=== PATIENT | female | born 1955 | race Caucasian/White ===

== ENCOUNTER 2019-07-11 09:01 | Day surgery (SDC) | payer MEDICARE ==
[2019-07-10 12:35] VITALS: BMI 21.9
[~2019-07-11 09:01] MED LIST: Cyclopentolate 1% Opth Drop 2 ML BOT R EYE SCH; EPINEPHrine 0.3 MG in Ophthalmic Irrigation Solution 500 ML IRR SCH; Fentanyl 100 MCG/2 ML VIAL ONE; Midazolam HCl 2 mg/2 ml Vial ONE; Phenylephrine 2.5% Ophth Soln 5 ML BOT R EYE SCH
[2019-07-11] MEDS ORDERED: Cyclopentolate 1% Opth Drop 2 ML BOT ONE (09:27)
[2019-07-11] MEDS ORDERED: Phenylephrine 2.5% Ophth Soln 5 ML BOT ONE (09:27)
--- NOTE | 2019-07-11 13:27 | OP ---
DATE OF PROCEDURE: 07/11/2019 PRINCIPAL PREOPERATIVE DIAGNOSIS: Vitreomacular traction, right eye. POSTOPERATIVE DIAGNOSIS: Vitreomacular traction, right eye. NAME OF PROCEDURES PERFORMED: 1. 25-gauge pars plana vitrectomy, right eye. 2. Membrane peel, right eye. ESTIMATED BLOOD LOSS: None. SPECIMENS REMOVED: None. COMPLICATIONS: None. ANESTHESIA: MAC with retrobulbar block. SUMMARY OF THE OPERATION: The patient was identified in the preoperative holding area, where the correct eye being the right eye was marked for surgery. The patient was taken to the operating room, where MAC anesthesia was induced. A retrobulbar block was administered to the right eye. The block consisted of 1:1 ratio of 4% lidocaine and 0.75% Marcaine. A total of 5 mL was administered. The right eye was then prepped and draped in the usual sterile ophthalmic fashion for surgery. A wire lid speculum was placed. A standard 25-gauge pars plana vitrectomy platform was fashioned with trocars placed approximately 4 mm from the limbus. The infusion was noted to be within the vitreous cavity prior to being turned on to an infusion pressure of 30 mmHg. The light pipe Micro vitrector introduced in the eye under visualization of the BIOM viewing system. A careful core vitrectomy was performed followed by the injection of Kenalog. A gentle posterior vitreous detachment was subsequently created followed by completion of peripheral shave vitrectomy. A close examination of the periphery was performed with a 360 degree scleral depression, which revealed no defects. The cannulas were sequentially removed with suturing of the supratemporal sclerotomy required. Following suturing, all sclerotomies were noted to be watertight. Subconjunctival Ancef and Kenalog were injected. The wire lid speculum was removed followed by application of TobraDex ophthalmic ointment and a light patch and shield. The patient tolerated the procedure well and was taken to the outpatient recovery area in good condition. Job ID: [id number]
[2019-07-11] MEDS ORDERED: Lidocaine 4% PF 5 ML AMP ONE (15:00)
[2019-07-11] MEDS ORDERED: Maxitrol 0.1% Opth Oint 3.5 GM TUBE ONE (15:00)
[2019-07-11] MEDS ORDERED: PROPOFOL 200 MG/20 ML VIAL ONE (15:00)
[2019-07-11] MEDS ORDERED: Triamcinolone 40 MG/ML VIAL ONE (15:00)
[2019-07-11] MEDS ORDERED: Lidocaine 1% PF 5 ML VIAL ONE (15:00)
[2019-07-11] MEDS ORDERED: Bupivacaine PF 0.75% SDV 10 ML ONE (15:00)
== END 2019-07-11 13:20 | disposition home or self-care (01) ==
LOC: SDC 09:01
PROVIDERS: ATTEND Ophthalmology Retina Specialist
PROC: 08T43ZZ Resection of Right Vitreous, Percutaneous Approach (ICD-10-PCS; principal; 2019-07-11)
PROC: 08NE3ZZ Release Right Retina, Percutaneous Approach (ICD-10-PCS; 2019-07-11)
DX: H43.821 Vitreomacular adhesion, right eye (principal); H43.311 Vitreous membranes and strands, right eye; E03.9 Hypothyroidism, unspecified; G43.909 Migraine, unspecified, not intractable, without status migrainosus
CPT/HCPCS: J0171; J2250; J3010